=== PATIENT | female | born 1990 | race Hispanic/Latino ===

== ENCOUNTER 2020-05-15 07:20 | Inpatient (IN) | payer BC ==
[~2020-05-15] VITALS: Ht 165.1 cm; Wt 89.8 kg
[~2020-05-15 07:20] MED LIST: IBUP-2077 PO
[2020-05-15 08:07] LABS: APPEARANCE,URINE CLOUDY (CLEAR); BILIRUBIN,URINE NEGATIVE (NEGATIVE); COLOR,URINE YELLOW (YELLOW); GLUCOSE, URINE (UA) NEGATIVE (NEGATIVE); KETONES,URINE NEGATIVE (NEGATIVE); LEUKOCYTE ESTERASE ,URINE MODERATE (NEGATIVE); NITRATE,URINE NEGATIVE (NEGATIVE); OCCULT BLOOD,URINE LARGE (NEGATIVE); PH,URINE 6.5 (5.0-8.0); PROTEIN,URINE NEGATIVE (NEGATIVE); UROBILINOGEN,URINE 0.2 mg/dL (0.2-1.0)
[2020-05-15] MEDS ORDERED: EPHEDRINE SULFATE 50 MG/ML AMPULE IVP PRN (08:15)
[2020-05-15] MEDS ORDERED: AMPICILLIN 1GM+NS 50ML 50 ML IV SCH (08:15)
[2020-05-15] MEDS ORDERED: NALOXONE HCL 0.4 MG/1 ML ML IV PRN (08:15)
[2020-05-15] MEDS ORDERED: LACTATED RINGERS 1000ML 1,000 ML IV PRN (08:15)
[2020-05-15] MEDS ORDERED: AMPICILLIN 2GM+NS 100ML 100 ML IV SCH (08:15)
[2020-05-15] MEDS ORDERED: LACTATED RINGERS 500 ML 500 ML IV PRN (08:15)
[2020-05-15] MEDS ORDERED: OXYTOCIN-LR 20 UNITS/1000 ML 1,000 ML IV SCH (08:15)
[2020-05-15 08:27] LABS: BACTERIA,URINE Few /HPF (None Seen); SQUAMOUS EPITHELIAL CELL,UR Few /HPF (0-2)
[2020-05-15 08:28] LABS: HEMATOCRIT 29.5 % (36-48); MEAN CORPUSCULAR HEMOGLOBIN 23.8 pg (27.0-33.0); MEAN CORPUSCULAR HGB CONC 30.8 g/dL (32.0-36.0); PLATELET COUNT (AUTO) 281 K/uL (130-400); RED BLOOD CELL COUNT(AUTO) 3.83 MIL/uL (4.00-5.50); RED CELL DISTRIBUTION WIDTH 16.1 % (11.0-15.5); WHITE BLOOD COUNT (AUTO) 17.5 K/uL (4.8-10.8)
[2020-05-15] MEDS ORDERED: CEFAZOLIN SODIUM 1 GM VIAL ONE (16:34)
[2020-05-15] MEDS ORDERED: LIDOCAINE 2%-EPI 1:200,000 20 ML VIAL IJ ONE (16:49)
[2020-05-15] MEDS ORDERED: CEFAZOLIN SODIUM 1 GM VIAL IVP ONE (16:50)
[2020-05-15] MEDS ORDERED: MEPERIDINE-PF 50 MG/ML SYG ONE (16:56)
[2020-05-15] MEDS ORDERED: OXYTOCIN 10 UNIT/1ML 10ML VIAL ONE (17:00)
[2020-05-15] MEDS ORDERED: MORPHINE PF 100MG/10ML AMP IV ONE (17:00)
[2020-05-15] MEDS ORDERED: DEXAMETHASONE SOD PHOSPHATE 10MG/ML 1ML VIAL ONE (17:00)
[2020-05-15] MEDS ORDERED: ONDANSETRON 4MG INJ ONE (17:00)
[2020-05-15] MEDS ORDERED: EPHEDRINE SULFATE 50 MG/ML AMPULE ONE (17:23)
[2020-05-15] MEDS ORDERED: PHENYLEPHRINE HCL 10 MG/ML 1ML VIAL IV ONE (17:27)
[2020-05-15] MEDS ORDERED: DEXTROSE 5 %-0.45 % NACL 1,000 ML IV PRN (17:30)
[2020-05-15] MEDS ORDERED: PROMETHAZINE HCL 25 MG/ML 1ML AMPULE IM PRN (17:30)
[2020-05-15] MEDS ORDERED: MEPERIDINE-PF 75 MG/ML SYG IM PRN (17:30)
[2020-05-15] MEDS ORDERED: 0.9%NACL 10ML VIAL IVP PRN (17:30)
[2020-05-15] MEDS ORDERED: OXYTOCIN-LR 20 UNITS/1000 ML 1,000 ML IV PRN (17:30)
[2020-05-15 20:37] VITALS: BP 102/54
[2020-05-15] MEDS ORDERED: PNV11TAB5 PO (21:03)
[2020-05-15] MEDS ORDERED: AMOX500C2 PO (21:03)
[2020-05-15 23:56] VITALS: BP 115/52
[2020-05-16 03:50] VITALS: BP 97/55
[2020-05-16 06:10] LABS: MEAN CORPUSCULAR HGB CONC 31.2 g/dL (32.0-36.0); MEAN CORPUSCULAR VOLUME 77.1 fL (79-99); RED BLOOD CELL COUNT(AUTO) 2.58 MIL/uL (4.00-5.50); RED CELL DISTRIBUTION WIDTH 16.3 % (11.0-15.5); WHITE BLOOD COUNT (AUTO) 29.4 K/uL (4.8-10.8)
[2020-05-16 06:12] LABS: HEPATITIS Bs ANTIGEN SCREEN P Negative (Negative)
[2020-05-16 06:26] LABS: HEMATOCRIT 19.9 % (36-48)
[2020-05-16] MEDS ORDERED: 0.9%NACL 1000ML 1,000 ML IV ONE (06:45)
[2020-05-16] MEDS ORDERED: LANOLIN 30GM OINTMENT TP PRN (08:00)
[2020-05-16] MEDS ORDERED: HYDROCODONE/ACETAMINOPHEN 5/325 MG TAB PO PRN (08:00)
[2020-05-16] MEDS ORDERED: ACETAMINOPHEN WITH CODEINE 1 TAB TAB PO PRN (08:00)
[2020-05-16] MEDS ORDERED: DIPHENHYDRAMINE HCL 25 MG CAPSULE PO PRN (08:00)
[2020-05-16] MEDS ORDERED: BISACODYL 10 MG SUPP.RECT RC PRN (08:00)
[2020-05-16] MEDS ORDERED: ACETAMINOPHEN 500 MG TABLET PO PRN (08:00)
[2020-05-16 08:55] VITALS: BP 88/57
[2020-05-16] MEDS: DOCUSATE SODIUM 100 MG CAP PO SCH ×2 (09:29→20:29)
[2020-05-16] MEDS: SIMETHICONE 80 MG TAB.CHEW PO PRN ×3 (09:29→20:29)
[2020-05-16] MEDS: IBUPROFEN 800 MG TAB PO SCH ×2 (09:30→17:45)
[2020-05-16 11:18] VITALS: BP 89/51
[2020-05-16] MEDS ORDERED: IBUPROFEN 800 MG TAB PO SCH (17:30)
[2020-05-16 19:34] VITALS: BP 111/64
[2020-05-16 20:06] LABS: MEAN CORPUSCULAR HEMOGLOBIN 25.4 pg (27.0-33.0); MEAN CORPUSCULAR HGB CONC 31.9 g/dL (32.0-36.0); MEAN CORPUSCULAR VOLUME 79.5 fL (79-99); RED BLOOD CELL COUNT(AUTO) 3.27 MIL/uL (4.00-5.50); RED CELL DISTRIBUTION WIDTH 15.9 % (11.0-15.5); WHITE BLOOD COUNT (AUTO) 23.2 K/uL (4.8-10.8)
[2020-05-16 23:34] VITALS: BP 106/57
[2020-05-17] MEDS: IBUPROFEN 800 MG TAB PO SCH ×2 (01:22→09:34)
[2020-05-17 03:25] VITALS: BP 105/61
[2020-05-17] MEDS: DOCUSATE SODIUM 100 MG CAP PO SCH (09:34)
[2020-05-17] MEDS: SIMETHICONE 80 MG TAB.CHEW PO PRN (09:34)
== END 2020-05-17 11:20 | disposition home or self-care (01) | DRG 788 ==
LOC: EDH 07:20 → LDH 07:26 → OBSVTOIN 08:07 → WSH 20:35
PROVIDERS: ADMIT Specialist; ATTEND Specialist
PROC: 10D00Z1 Extraction of Products of Conception, Low, Open Approach (ICD-10-PCS; principal; 2020-05-15 16:43)
PROC: 30233N1 Transfusion of Nonautologous Red Blood Cells into Peripheral Vein, Percutaneous Approach (ICD-10-PCS; 2020-05-16)
DX: O77.9 Labor and delivery complicated by fetal stress, unspecified (principal); Z3A.39 39 weeks gestation of pregnancy; Z37.0 Single live birth; O99.824 Streptococcus B carrier state complicating childbirth
CPT/HCPCS: 36415; 59510; 81001; 85027; 86592; 86701; 86850; 86900; 86901; 86923; 87077; 87088; 87186; 87340; 87390; A4314; A4344; G0378; J0290; J0690; J1100; J2175; J2274; J2370; J2405; J2590; J3490; J7120; P9016